=== PATIENT | female | born 2000 | race Caucasian/White ===

== ENCOUNTER 2019-12-15 15:01 | Inpatient (IN) | payer SELFPAY ==
--- NOTE | 2019-12-15 15:10 | PDOC ---
History of Present Illness - General Chief Complaint: Labor Assessment Stated Complaint: 6 MONTHS PREG/PAIN History Source: Patient Exam Limitations: No Limitations - History of Present Illness Initial Comments: 12/15/19 15:07 Patient is 19F at 23wks here today with vaginal bleeding, cramping lower abdominal pain. Patient has not pushed, has not felt any parts pass. Vitals stable. Not . Given reported gestational age, will transfer to labor and delivery. Past History - Past Medical History Allergies/Adverse Reactions: Allergies Allergy/AdvReac Type Severity Reaction Status Date / Time No Known Allergies Allergy Verified 12/15/19 15:12 Discharge - Discharge Information Problems reviewed: No Clinical Impression/Diagnosis: Condition: Stable - Follow up/Referral - Patient Discharge Instructions - Post Discharge Activity
[2019-12-15] MEDS ORDERED: LACTATED RINGERS SOLUTION 1,000 ML/1,000 ML INFUS.BAG IV SCH (16:00)
--- NOTE | 2019-12-15 16:02 | HP ---
Past Medical History - Primary Care Physician PCP:: Mel Sorto - Admission Chief Complaint: 19 yrd , lmp 08/06/18 edcedc by dates 05/13/20 18.5/7 weeks by dates, edc by sono 04/06/20 - 24 weeks by sonogram came by ambulence c/ o cramps on & off severe & bleeding History of Present Illness: c/o cramps for 3 days , pt google it felt she has [facility] she did not call her MD she sees OB doctor in [place], affilliated with [place] ,she is supposed to deliver in [facility] she states she had one ultrasound work up as per pt was neg History Source: Patient Limitations to Obtaining History: No Limitations - Past Medical History 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 Weeks Gestation by Dates: 18.5 ...EDC by Dates: 05/13/20 ...EDC by Sono: 04/06/20 (24 weeks by sono ) Heme/Onc: Yes: Other (declined) Infectious Disease: Yes: Other (declined) Psych: Yes: Other (declined) - Past Surgical History Past Surgical History: Yes: None Hx Myomectomy: No Hx Transabdominal Cerclage: No - Smoking History Smoking history: Never smoked - Alcohol/Substance Use Hx Alcohol Use: No History of Substance Use: reports: None Home Medications - Allergies Allergies/Adverse Reactions: Allergies Allergy/AdvReac Type Severity Reaction Status Date / Time No Known Allergies Allergy Verified 12/15/19 16:01 - Home Medications Home Medications: Ambulatory Orders Prenat 115/Iron Fum/Folic/Dss [ 19 Tablet] 1 tab PO DAILY 12/15/19 Physical Exam - Maternity Vital Signs: Vital Signs Temperature 98.4 F 12/15/19 15:10 Pulse Rate 98 H 12/15/19 15:10 Respiratory Rate 19 12/15/19 15:10 Blood Pressure 129/85 12/15/19 15:10 O2 Sat by Pulse Oximetry (%) 97 12/15/19 15:10 Constitutional: Yes: Well Nourished, Severe Distress, Obese Eyes: Yes: WNL HENT: Yes: WNL Neck: Yes: WNL, Rigid Cardiovascular: Yes: Pulse Irregular Lungs: Clear to auscultation Breast(s): Yes: WNL (large breasts) - Abdominal Exam/OB Fundal Height: 22 Number of Fetuses: Single Presentation: Vertex Contractions: Yes Regularity: Irregular Intensity: Mod/Strong Heart Rate (range): 150 Heart Rate Location: LLQ (unable to monitor FHR tracing, loss of contact) Decelerations: None - Vaginal Exam/OB Vaginal Bleediing: Bloody Show Speculum Exam: Yes Dilatation (cm): 7-8 cm Effacement (%): 100 Presentation: Vertex/Position Station: -2 - Physical Exam Musculoskeletal: Yes: Muscle Weakness Extremities: Yes: WNL. No: Calf Tenderness Edema: LLE: 1+, RLE: 1+ Integumentary: Yes: Tattoos Deep Tendon Reflex Grade: Normal +2 ...Motor Strength: WNL Psychiatric: Yes: WNL, Alert, Oriented - Labs Lab Results: Laboratory Tests 12/15/19 12/15/19 12/15/19 16:50 16:50 18:30 WBC 25.1 H RBC 3.72 Hgb 12.1 Hct 35.4 MCV 95.2 MCH 32.6 MCHC 34.3 Plt Count 327 PT with INR INR PTT (Actin FS) Urine Protein 1+ H Urine Blood 2+ H U Marijuana (THC) Screen Positive A* HIV 1&2 Antibody Screen HIV P24 Antigen 12/15/19 12/15/19 18:30 19:28 WBC RBC Hgb Hct MCV MCH MCHC Plt Count PT with INR 11.90 INR 1.01 PTT (Actin FS) 30.5 Urine Protein Urine Blood U Marijuana (THC) Screen HIV 1&2 Antibody Screen Negative HIV P24 Antigen Negative Problem List - Problems (1) 24 weeks gestation of Code(s): Z3A.24 - 24 WEEKS GESTATION OF (2) labor in second trimester Code(s): O60.02 - LABOR WITHOUT DELIVERY, SECOND TRIMESTER Qualifiers: Fetus number: single or unspecified fetus Assessment/Plan 19 yrs , inevitable delivery . bedside sono was done sliup 23.3 wweks, vx, efw 1'8" ( 675.71 gm ) . plan delivery vaginal inform field marketing specialist
[2019-12-15 16:17] VITALS: BMI 32.5
[2019-12-15] MEDS ORDERED: CEFAZOLIN 2 GM/D5W 2 GM/50 ML ML IVPB ONE (16:33)
--- NOTE | 2019-12-15 16:45 | PN ---
Delivery - Delivery Vaginal Delivery: No Problems, Spontaneous (pt srom , large amount of clear fluid & pushed the fetus, baby boy out in vx presentation at the same time ,, cord clamped cut, cord segment cut for cord gas, cord blood minimal obtained .. Placenta expelled at 4.30 PM) EBL (cc): 250 Delivery, Single - Stages of Labor Date 1st Stage Initiatied: 12/13/19 Time 1st Stage Initiated: 08:00 (severe pain 2.45 pm 12/15/19 , called EMT ) Date 2nd Stage Initiated: 12/15/19 Time 2nd Stage Initiated: 16:15 Date of Delivery: 12/15/19 Time of Delivery: 16:20 Date Placenta Delivered: 12/15/19 Time Placenta Delivered: 16:30 Placenta: Yes: Spontaneous, Uterine Exploration - Condition of Infant Mergers And Acquisitions Associate/Soft Metals Engraver Hand Present: Yes Name: Fran Beavers Gender: Male Weight: 1 lb 4 oz (561gm, 26 cm long) Position: OA - 1 Minute Total Score: 1 5 Minutes Total Score: 1 10 Minutes Total Score: 1 - Feeding Plan Initial Plan: Exclusive throughout hospitalization Remarks - Remarks Remarks: 19 yrs , 24 weeks by sono , , 18.5 weeks by dates admitted with bulging membranes . pt SROM, & baby eyes fused, unable to resuscitate baby as per derivatives trader
[2019-12-15] MEDS ORDERED: OXYTOCIN 20 UNITS in 0.9% NS 20 UNIT/1,000 ML INFUS.BAG IV ONE (16:59)
[2019-12-15] MEDS ORDERED: WITCH HAZEL 50% (TUCKS) 40 PAD/JAR PAD TP PRN (17:00)
[2019-12-15] MEDS ORDERED: OXYTOCIN 20 UNITS in 0.9% NS 20 UNIT/1,000 ML INFUS.BAG IV SCH (17:00)
[2019-12-15] MEDS ORDERED: oxyCODONE HCL 5 MG TABLET PO PRN (17:00)
[2019-12-15] MEDS ORDERED: METHYLERGONOVINE MALEATE 0.2 MG/1 ML AMP IM PRN (17:00)
[2019-12-15] MEDS ORDERED: ceFAZolin 2 GRAM PREMIX BAG IVPB ONE (17:00)
[2019-12-15] MEDS ORDERED: BISACODYL 10 MG SUPP.RECT RC PRN (17:00)
[2019-12-15] MEDS ORDERED: BENZOCAINE 28 GM HEMORRHOIDAL OINTMENT TP PRN (17:00)
[2019-12-15] MEDS ORDERED: BENZOCAINE 20% 57 GM BOTTLE TP PRN (17:00)
[2019-12-15] MEDS: FERROUS SO4 325 MG TABLET (FP) PO SCH (17:30)
[2019-12-15] MEDS ORDERED: ACETAMINOPHEN 325 MG TABLET (FP) ONE (17:44)
[2019-12-15] MEDS ORDERED: IBUPROFEN 600 MG TABLET (FP) PO ONE (17:44)
[2019-12-15] MEDS: IBUPROFEN 600 MG TABLET (FP) PO PRN ×2 (17:45→23:58)
[2019-12-15] MEDS: ACETAMINOPHEN 325 MG TABLET (FP) PO PRN ×2 (17:45→23:56)
[2019-12-15 17:59] LABS: HYALINE CASTS 6 /lpf (0-8); URINE APPEARANCE TURBID; URINE BILIRUBIN NEGATIVE (NEGATIVE); URINE COLOR DK YELLOW; URINE GLUCOSE (UA) NEGATIVE (NEGATIVE); URINE KETONE NEGATIVE (NEGATIVE); URINE LEUK ESTERASE TRACE (NEGATIVE); URINE NITRITE NEGATIVE (NEGATIVE); URINE PROTEIN 1+ (NEGATIVE); URINE RBC 89 /hpf (0-4); URINE WBC 3 /hpf (0-5)
[2019-12-15 18:07] LABS: COCAINE, UR NEGATIVE ng/ml (CUTOFF=300); METHADONE, UR NEGATIVE ng/ml (CUTOFF=300); OPIATES, URI NEGATIVE ng/ml (CUTOFF=300); PHENCYCLIDINE,URINE NEGATIVE ng/ml (CUTOFF=25); URINE AMPHETAMINES NEGATIVE ng/ml (CUTOFF=500); URINE BARBITURATES NEGATIVE ng/ml (CUTOFF=200); URINE BENZODIAZEPINES NEGATIVE ng/ml (CUTOFF=200)
[2019-12-15 18:56] LABS: BASO % 0.3 % (0-2.0); HEMATOCRIT 35.4 % (32.4-45.2); HEMOGLOBIN 12.1 GM/dL (10.7-15.3); LYMPH % 4.6 % (8-40); MCH 32.6 pg (25.7-33.7); MCHC 34.3 g/dl (32.0-36.0); MEAN CELL VOLUME 95.2 fl (80-96); MONO % 5.5 % (3.8-10.2); NEUT % 89.6 % (42.8-82.8); PLATELET COUNT 327 K/MM3 (134-434); RBC 3.72 M/mm3 (3.60-5.2); RDW 12.3 % (11.6-15.6); WHITE BLOOD COUNT 25.1 K/mm3 (4.0-10.0)
[2019-12-15 19:19] LABS: INR 1.01 (0.83-1.09); PROTHROMBIN TIME (PATIENT) 11.9 SEC (9.7-13.0)
[2019-12-15 19:22] LABS: ACTIVATED PTT 30.5 SECONDS (25.2-36.5)
[2019-12-15 19:54] LABS: PLATELET ESTIMATE ADEQUATE
[2019-12-15 22:56] LABS: ALBUMIN 3.1 g/dl (3.4-5.0); BILIRUBIN,TOTAL 0.5 mg/dL (0.2-1); BLOOD UREA NITROGEN 5.7 mg/dL (7-18); CALCIUM 9.1 mg/dL (8.5-10.1); CREATININE 0.6 mg/dL (0.55-1.3); POTASSIUM 3.9 mmol/L (3.5-5.1); TOT PROT 7.1 g/dl (6.4-8.2)
[2019-12-16 06:40] VITALS: TEMP 97.6
[2019-12-16 08:29] LABS: BASO % 0.4 % (0-2.0); EOS % 2.6 % (0-4.5); HEMATOCRIT 31.2 % (32.4-45.2); HEMOGLOBIN 10.7 GM/dL (10.7-15.3); MCH 32.8 pg (25.7-33.7); MCHC 34.5 g/dl (32.0-36.0); MEAN CELL VOLUME 95.1 fl (80-96); MEAN PLT VOLUME 7.5 fl (7.5-11.1); MONO % 7.9 % (3.8-10.2); NEUT % 68.1 % (42.8-82.8); PLATELET COUNT 281 K/MM3 (134-434); RBC 3.28 M/mm3 (3.60-5.2); RDW 12.3 % (11.6-15.6); WHITE BLOOD COUNT 17.3 K/mm3 (4.0-10.0)
--- NOTE | 2019-12-16 09:48 | DS ---
Physical Exam-THERMAL INTELLIGENCE ANALYST Vital Signs: Vital Signs Temperature 97.6 F 12/16/19 06:00 Pulse Rate 65 12/16/19 06:00 Respiratory Rate 18 12/16/19 06:00 Blood Pressure 100/47 L 12/16/19 06:00 O2 Sat by Pulse Oximetry (%) 99 12/15/19 20:15 Constitutional: Yes: Well Nourished, Obese, Other (c/o cramps) Eyes: Yes: WNL HENT: Yes: WNL Neck: Yes: WNL Cardiovascular: Yes: WNL Respiratory: Yes: WNL Gastrointestinal: Yes: WNL Renal/: Yes: WNL. No: CVA Tenderness - Left, CVA Tenderness - Right ....Post : Yes: Uterus firm, Uterus non-tender, Moderate lochia rubra ( perineum intact) Breast(s): Yes: WNL Musculoskeletal: Yes: WNL Extremities: Yes: WNL. No: Calf Tenderness Edema: Yes Edema: LLE: 1+, RLE: 1+ Integumentary: Yes: Tattoos Neurological: Yes: WNL, Alert, Oriented ...Motor Strength: WNL Psychiatric: Yes: WNL, Alert, Oriented, Other (adjusted well to ( 23- 24 wk ) demise) Labs: CBC, BMP 12/16/19 07:58 12/15/19 22:30 Laboratory Tests 12/15/19 12/15/19 12/15/19 16:50 19:28 22:21 U Marijuana (THC) Screen Positive A* RPR Titer Nonreactive HIV 1&2 Antibody Screen Negative HIV P24 Antigen Negative Delivery - Delivery Vaginal Delivery: No Problems, Spontaneous (pt srom , large amount of clear fluid & pushed the fetus, baby boy out in vx presentation at the same time ,, cord clamped cut, cord segment cut for cord gas, cord blood minimal obtained .. Placenta expelled at 4.30 PM) Type of Anesthesia: None Episiotomy/Laceration: None EBL (cc): 250 Delivery, Single - Stages of Labor Date 1st Stage Initiatied: 12/13/19 Time 1st Stage Initiated: 08:00 (severe pain 2.45 pm 12/15/19 , called EMT ) Date 2nd Stage Initiated: 12/15/19 Time 2nd Stage Initiated: 16:15 Date of Delivery: 12/15/19 Time of Delivery: 16:20 Time Placenta Delivered: 16:30 Placenta: Yes: Spontaneous, Uterine Exploration - Condition of Infant Supervisor Inspection Room/Asbestos Textile Supervisor Present: Yes Name: Fran Beavers Infant Gender: Male Weight: 1 lb 4 oz (561gm, 26 cm long) Position: OA Total Hours ROM (Hrs/Mins): 0HRS/5MINS - 1 Minute Total Score: 1 5 Minutes Total Score: 1 10 Minutes Total Score: 1 - Feeding Plan Initial Plan: Exclusive throughout hospitalization Remarks - Remarks Remarks: 19 yrs , 24 weeks by sono , , 18.5 weeks by dates admitted with bulging membranes . pt SROM, & baby eyes fused, unable to resuscitate baby as per rotary drill operator baby was pronounced after couple hrs pp course uneventfu she requests discharge today Discharge Summary Problems reviewed: No Reason For Visit: LABOR Current Active Problems 24 weeks gestation of (Acute) (Acute) labor in second trimester (Acute) Condition: Stable - Instructions - Home Medications Comprehensive Discharge Medication List: Ambulatory Orders Prenat 115/Iron Fum/Folic/Dss [ 19 Tablet] 1 tab PO DAILY 12/15/19
[2019-12-16] MEDS ORDERED: PRENATAL VITAMINS W/ FOLIC ACID TABLET (FP) PO SCH (10:00)
[2019-12-16] MEDS: FERROUS SO4 325 MG TABLET (FP) PO SCH (10:27)
[2019-12-16 10:48] VITALS: BP 127/75; PULSE 96
[2019-12-16] MEDS ORDERED: SENNOSIDES/DOCUSATE COMBO (SENNA PLUS) TABLET (UD) PO PRN (22:00)
--- NOTE | 2019-12-19 14:22 | PATH ---
Surgical Pathology Report Patient Name: JC OLIVEIRA Med. Rec. #: [id number] /Age/Gender: 2000 (Age: 19) / F Account: [id number] Location: [facility] OBS/MANAGER OF NETWORK Taken: 12/15/2019 Received: 12/17/2019 Reported: 12/19/2019 Physicians: Mel Sorto M.D. Specimen(s) Received PLACENTA Clinical History , 24 weeks Final Diagnosis PLACENTA, DELIVERY: 211 G SECOND TRIMESTER PLACENTA WITH TRIVASCULAR UMBILICAL CORD, SEVERE ACUTE CHORIOAMNIONITIS, PANVASCULITIS AND ASSOCIATED FUNISITIS. Electronically Signed Peggy Marrero M.D. Gross Description The specimen is received fresh labeled placenta and is a 211 gram, 15.5 x 11.0 x 2.0 cm. placenta with attached membranes and umbilical cord. The attached membranes are overton, thick, cloudy and insert marginally. The umbilical cord measures 10.5 cm. in length and averages 1 cm. in diameter. The cord inserts eccentrically, 2 cm. to the nearest margin. No true knots or strictures are identified. Cut surface of the umbilical cord reveals 3 vessels. The surface is bell-blue with minimal fibrin deposition and appropriate caliber vessels. The maternal surface is red-brown with focal defects. Sectioning reveals red-brown, spongy parenchyma. No lesions are identified. Fence Post Driver sections are submitted in three cassettes as follows: 1- membrane rolls and umbilical cord; 2-3- full thickness sections of placenta. 12/18/2019 [facility]12/18/2019
== END 2019-12-16 11:25 | disposition home or self-care (01) | DRG 560 ==
LOC: JER 15:01 → JLDR 15:40 → J3W 21:10
PROVIDERS: ADMIT Obstetrics & Gynecology; ATTEND Obstetrics & Gynecology
PROC: 10E0XZZ Delivery of Products of Conception, External Approach (ICD-10-PCS; principal; 2019-12-15)
DX: O60.12X0 Preterm labor second trimester with preterm delivery second trimester, not applicable or unspecified (principal); O99.212 Obesity complicating pregnancy, second trimester; Z3A.24 24 weeks gestation of pregnancy; Z37.0 Single live birth
CPT/HCPCS: 36415; 59409; 76801-TC; 80053; 80307; 81003; 85025; 85610; 85730; 86593; 86762; 86850; 86900; 86901; 87340; 87389; 88305-TC; 99283-25